=== PATIENT | male | born 1975 | race Caucasian/White ===

== ENCOUNTER → 2020-04-30 | Outpatient (CLI) | payer BC ==
[2020-04-30 13:14] LABS: Basophils # (A) 0.2 k/uL (0-0.2); Basophils % (A) 2 %; Eosinophils # (A) 1.3 k/uL (0-0.7); Eosinophils % (A) 10 %; HCT 51.5 % (39.0-53.0); HGB 17.2 gm/dL (13.0-17.5); Lymphocytes # (A) 1.6 k/uL (1.0-4.8); Lymphocytes % (A) 12 %; MCHC 33.4 g/dL (31.0-37.0); MCV 86.8 fL (80.0-100.0); Mean Platelet Volume 7.6; Monocytes # (A) 0.7 k/uL (0-1.0); Monocytes % (A) 6 %; Neutrophils # (A) 9.4 k/uL (1.3-7.7); Neutrophils % (A) 70 %; Platelet Count 202 k/uL (150-450); RBC 5.94 m/uL (4.30-5.90); RDW 13.9 % (11.5-15.5); WBC 13.4 k/uL (3.8-10.6)
== END | disposition home or self-care (01) ==
LOC: LABWHC1 11:47
PROVIDERS: ATTEND Podiatrist Primary Podiatric Medicine
DX: L03.116 Cellulitis of left lower limb (principal); M10.072 Idiopathic gout, left ankle and foot
CPT/HCPCS: 36415; 84550; 85025

== ENCOUNTER → 2021-07-02 | Outpatient (CLI) | payer BC ==
--- NOTE | 2021-07-02 15:31 | CONS ---
CONSULTATION DATE OF SERVICE: 07/02/2021 This 45-year-old gentleman has been evaluated in [facility] Center for obstructive sleep apnea-hypopnea syndrome. HISTORY OF PRESENT ILLNESS/SLEEP-WAKE EVALUATION: This patient was diagnosed with obstructive sleep apnea 3 years ago in [place], according to him. Since that time he has been on on treatment with CPAP, and he is using the equipment every night for the whole night. With CPAP he does not snore and he sleeps well. His sleep schedule is from 11 p.m. until 7 a.m. No problems with falling asleep. No TV in bedroom. He usually sleeps on the back and side positions. He may wake up from sleep once to use the bathroom. No history of hypnagogic hallucinations, sleep paralysis or cataplexy. Sometimes he may feel that there is not enough pressure in his machine. I checked his CPAP unit. It is in automatic regimen. Range of the pressure is 11 to 14, average pressure 12.5, usage 30/30 nights for more than 4 hours, average 7.8 hours per night. Leak is 23 L/minute, which is within normal range. Apnea-hypopnea index is only 0.4, which is absolutely perfect. The patient is using AirFit P10 large nasal pillow masks. [place] Sleepiness Scale is 5. The patient may take one nap around 1 p.m. PAST MEDICAL HISTORY: Positive for gout. PAST SURGICAL HISTORY: Positive for hiatal hernia. MEDICATIONS: Allopurinol 100 mg once a day. SOCIAL HISTORY: Negative for smoking. Alcohol consumption occasional. FAMILY HISTORY: Asthma, snoring, restless legs. REVIEW OF SYSTEMS: Occasionally not sufficient air in the CPAP unit. Otherwise negative. No fevers. No double vision. No recent chest pain. No shortness of breath. No abdominal pain. No bleeding episodes. No blood in the urine. No seizure episodes. PHYSICAL EXAMINATION: GENERAL: Pleasant gentleman without distress. VITAL SIGNS: BP 151/81, HR 81, RR 18, height 6 feet 1 inch, weight 290.8 pounds, body mass index 38.2, temperature 97.5, oxygen saturation at room air 96%. HEENT: PERRLA, EOMI, evaluation of oropharynx showed tongue protrudes midline. Low position of soft palate; Mallampati III. NECK: Supple, no JVD. Thyroid is not palpable. Wide neck; 19-1/2 inches in circumference. LUNGS: Clear to percussion and to auscultation. Good air exchange. No wheezing or rhonchi. HEART: S1, S2 regular. No murmurs, gallops, or rubs. ABDOMEN: Soft and nontender. Bowel sounds are present. No organomegaly appreciated. EXTREMITIES: No clubbing or cyanosis. INTERMEDIATE CARD TENDER: Awake, alert, and oriented X3. Cranial nerves 2 to 7 intact. There is no fasciculation or atrophy. noted. No focal deficits observed. IMPRESSION: 1. History of obstructive sleep apnea-hypopnea syndrome documented in another institution in [place], low position of soft palate; Mallampati III, wide neck, 9-1/2 inches in circumference; obstructive sleep apnea syndrome. The patient sleeps well with his CPAP unit and has continued to use CPAP equipment for the last 3 years. I checked his CPAP unit. It demonstrated 100% compliance with treatment. Normal respiration on CPAP. Apnea-hypopnea index 0.4. Sometimes he feels that there is not enough pressure in the machine. 2. Obesity; body mass index 38.2. 3. History of gout. 4. Status post surgical treatment of hiatal hernia in January 2019. PLAN: 1. Obtain results of previous sleep studies. 2. If previous sleep studies are not available, we will proceed with home sleep apnea test. 3. The patient should continue to use CPAP equipment every night for the whole night. 4. I adjusted range of the pressure in the machine to automatic range 11 to 16 cm of water. 5. No driving if feeling any sleepiness. 6. Sleep hygiene with regular time in bed for at least 7-1/2 to 8 hours. 7. Follow-up visit in 6 months, or earlier if patient has any problems. 8. Prescriptions for all necessary CPAP supplies, including nasal pillow, mask, tube, filters have been written. Sincerely, Wilton Magaña MD, PhD, FAASM Diplomat of [employer] Sleep Medicine Board of [employer] Quality Assurance Monitor Body of [facility] [place] MMPATRICK / NITA: [id number] /
== END ==
LOC: SLEEP 13:36
PROVIDERS: ATTEND Internal Medicine
DX: G47.33 Obstructive sleep apnea (adult) (pediatric) (principal); Z99.89 Dependence on other enabling machines and devices; E66.9 Obesity, unspecified; Z68.38 Body mass index [BMI] 38.0-38.9, adult; Z87.39 Personal history of other diseases of the musculoskeletal system and connective tissue; Z98.890 Other specified postprocedural states
CPT/HCPCS: 99211

== ENCOUNTER → 2022-01-14 | Outpatient (CLI) | payer BC ==
--- NOTE | 2022-01-14 12:10 | P.PN ---
Subjective DATE: 01/14/2022 FOLLOW UP VISIT. Patient with obstructive sleep apnea hypopnea syndrome return to sleep center for follow-up visit. Information from previous visit have been reviewed. Patient is using PAP equipment every night for the whole night, getting PAP supplies in time. The patient does not have significant problems with the mask, PAP unit and humidification. [place] sleepiness scale is 3. I checked PAP unit. Air filter is in good shape PAP unit pressure 12-16, average 12.6 cm H2O. Usage is 100 % for more then 4 hours, average 8.7 hours per night. Leak is 38 l/m, which is in acceptable range. Apnea Hypopnea Index is 0.3, which is normal. MEDICATIONS: None During physical exam: GENERAL: A pleasant patient without any distress. VITAL SIGNS: BP 131/83, HR 68, RR 16 , weight 289.6, temperature 97.0, oxygen saturation at room air 97 % . HEENT: PERRLA, EOMI.low position of soft palate, Mallapati 3 . NECK: Supple. No JVD. LUNGS: Clear to percussion and to auscultation. Good air exchange. No wheezing or rhonchi. HEART: S1, S2 regular. ABDOMEN: Soft and nontender. Obese EXTREMITIES: No clubbing or cyanosis. STARCH AND PROSIZE MIXER: Awake, alert, and oriented x3. No focal deficit. Impressions: 1. Obstructive sleep apnea-hypopnea syndrome in severe range. Sleep study which was done in [place] in 2018 showed apnea-hypopnea index 49.1. Patient demonstrated great compliance with treatment, benefiting from treatment. Normal respiration on CPAP. 2. Obesity. 3. History of gout. 4. Status post surgical treatment for high at the hernia in January 2019. Plan: 1. Continue using PAP equipment every night for the whole night. I changed pressure in CPAP unit to the range from 10-16 cm of water. 2. To change air filter at least 1-2 times per month. 3. PAP unit should stay lower then position of the head. 4. Advised patient to remove all remaining water from humidifier canister daily and make it dry after each usage. Refill canister with fresh distilled water before each usage. 5. Sleep hygiene with regular time in bed for at least 8 hours. 6. Precautions related to driving. No driving if feel any sleepiness. 7. I will maintain prescription for PAP supplies including mask, tube, filters. 8. Follow up visit in 6 months or earlier if patient has any problems. 9. Watching and losing weight. Thank you very much for allowing me to participate in the management of your patient. Wilton Magaña MD, PhD, FAASM. Diplomat of [employer], Sleep Medicine Board by [employer] Credit Adjuster of [facility] [place]
== END ==
LOC: SLEEP 11:41
PROVIDERS: ATTEND Internal Medicine
DX: G47.33 Obstructive sleep apnea (adult) (pediatric) (principal); E66.9 Obesity, unspecified; Z99.89 Dependence on other enabling machines and devices; M10.9 Gout, unspecified; Z98.890 Other specified postprocedural states

== ENCOUNTER → 2022-07-28 | Outpatient (CLI) | payer BC ==
--- NOTE | 2022-07-28 11:29 | P.PN ---
Subjective DATE: 07/28/2022 FOLLOW UP VISIT. Patient with obstructive sleep apnea hypopnea syndrome return to sleep center for follow-up visit. Information from previous visit have been reviewed. Patient is using PAP equipment every night for the whole night, getting PAP supplies in time. The patient does not have significant problems with the mask, PAP unit and humidification. [place] sleepiness scale is 3, which is totally normal. I checked information from PAP unit. PAP unit pressure 13-16, average 14.2 cm H2O. Usage is 100 % for more then 4 hours, average 7.8 hours per night. Leak is 40 l/m, which is in acceptable range. Apnea Hypopnea Index is 0.7, which is normal. Patient had several episodes for the last 6 months when he wakes up from sleep and feel that is not enough pressure and his CPAP unit. MEDICATIONS:1. Allopurinol 150 mg once a day During physical exam: GENERAL: A pleasant patient without any distress. VITAL SIGNS: BP 156/94, HR 70, RR 16 , weight 282.4, temperature 98.2, oxygen saturation at room air 96 % . HEENT: PERRLA, EOMI.low position of soft palate, Mallapati 3 . NECK: Supple. No JVD. LUNGS: Clear to percussion and to auscultation. Good air exchange. No wheezing or rhonchi. HEART: S1, S2 regular. ABDOMEN: Soft and nontender. Obese EXTREMITIES: No clubbing or cyanosis. LINOLEUM TILE LAYER: Awake, alert, and oriented x3. No focal deficit. Impressions: 1. Obstructive sleep apnea-hypopnea syndrome. Patient demonstrated great compliance with treatment, benefiting from treatment. 2. Obesity, BMI 37.2, patient lost 7 pounds since previous visit. 3. Gout. 4. Status post surgical treatment for hiatal hernia in 2019. Plan: 1. Continue using PAP equipment every night for the whole night. I adjusted range of the pressure in CPAP unit to 1417 centimeters of water. 2. To change air filter at least 1-2 times per month. 3. PAP unit should stay lower then position of the head. 4. Advised patient to remove all remaining water from humidifier canister daily and make it dry after each usage. Refill canister with fresh distilled water before each usage. 5. Sleep hygiene with regular time in bed for at least 8 hours. 6. Precautions related to driving. No driving if feel any sleepiness. 7. I will maintain prescription for PAP supplies including mask, tube, filters. 8. Watching and continue losing weight. 9. Follow up visit in 6 months or earlier if patient has any problems. Thank you very much for allowing me to participate in the management of your patient. Wilton Magaña MD, PhD, FAASM. Diplomat of [employer], Sleep Medicine Board by [employer] Inside Barrel Lathe Operator of [facility] [place]
== END ==
LOC: SLEEP 11:04
PROVIDERS: ATTEND Internal Medicine
DX: G47.33 Obstructive sleep apnea (adult) (pediatric) (principal); E66.9 Obesity, unspecified; Z68.37 Body mass index [BMI] 37.0-37.9, adult; M10.9 Gout, unspecified; Z98.890 Other specified postprocedural states; Z99.89 Dependence on other enabling machines and devices
CPT/HCPCS: 99212

== ENCOUNTER → 2022-12-30 | Outpatient (CLI) | payer BC ==
--- NOTE | 2022-12-30 13:41 | US ---
EXAMINATION TYPE: US extremity nonvasc complete LT DATE OF EXAM: 12/30/2022 COMPARISON: NONE CLINICAL INDICATION: Male, 47 years old with history of M76.62 achilles tendonitis; TECHNIQUE: Multiple sonographic images posterior left ankle for assessment of the Achilles tendon. FINDINGS: Achilles tendon shows normal, smooth delineation with preserved fibrillar architecture. No abnormal t hickening or tear is identified. There is a small effusion within the retrocalcaneal bursa at the Ach illes insertion. No other specific abnormality seen here. IMPRESSION: Normal sonographic appearance to the Achilles tendon. There may be a small retrocalcaneal bursitis ju st adjacent. If symptoms persist, consider MRI.
== END | disposition home or self-care (01) ==
LOC: RADUSWWP 12:50
PROVIDERS: ATTEND Family Medicine
DX: M76.62 Achilles tendinitis, left leg (principal)

== ENCOUNTER → 2023-04-07 | Outpatient (CLI) | payer BC ==
--- NOTE | 2023-04-07 11:07 | P.PN ---
Subjective DATE: 04/07/2023 FOLLOW UP VISIT. Patient with obstructive sleep apnea hypopnea syndrome return to sleep center for follow-up visit. Information from previous visit have been reviewed. Patient is using PAP equipment every night for the whole night, getting PAP supplies in time. The patient does not have significant problems with the mask, PAP unit and humidification. [place] sleepiness scale is 3, which is perfect. I checked information from PAP unit. PAP unit pressure 14-17, average 15.3 cm H2O. Usage is 100 % for more then 4 hours, average 7.6 hours per night. Leak is 31 l/m, which is in acceptable range. Apnea Hypopnea Index is 0.3, which is normal. CPAP unit is more than 5-year-old, sometimes noisy. MEDICATIONS:1. Allopurinol 150 mg once a day During physical exam: GENERAL: A pleasant patient without any distress. VITAL SIGNS: BP 157/99, HR 60, RR 16 , weight 301.0, temperature 98.3, oxygen saturation at room air 95 % . HEENT: PERRLA, EOMI.low position of soft palate, Mallapati 3 . NECK: Supple. No JVD. LUNGS: Clear to percussion and to auscultation. Good air exchange. No wheezing or rhonchi. HEART: S1, S2 regular. ABDOMEN: Soft and nontender. Obese EXTREMITIES: No clubbing or cyanosis. CORROSION CONTROL FITTER: Awake, alert, and oriented x3. No focal deficit. Impressions: 1. Obstructive sleep apnea-hypopnea syndrome. Patient demonstrated great compliance with treatment, benefiting from treatment. 2. Obesity, BMI 39.7, patient increased his weight on 19 pounds comparing with previous visit. 3. Gout. 4. Status post surgical treatment for hiatal hernia in 2019. Plan: 1. Continue using PAP equipment every night for the whole night. 2. Prescription to replace CPAP unit. 3. PAP unit should stay lower then position of the head. 4. Advised patient to remove all remaining water from humidifier canister daily and make it dry after each usage. Refill canister with fresh distilled water before each usage. 5. Sleep hygiene with regular time in bed for at least 8 hours. 6. Precautions related to driving. No driving if feel any sleepiness. 7. I will maintain prescription for PAP supplies including mask, tube, filters. 8. Follow up visit in 30-90 days after getting new CPAP unit . 9. Watching and losing weight. Thank you very much for allowing me to participate in the management of your patient. Wilton Magaña MD, PhD, FAASM. Diplomat of [employer], Sleep Medicine Board by [employer] Sub Master of [facility] [place]
== END ==
LOC: 3 N SLEEP 10:23
PROVIDERS: ATTEND Internal Medicine
DX: G47.33 Obstructive sleep apnea (adult) (pediatric) (principal); E66.9 Obesity, unspecified; M10.9 Gout, unspecified; Z68.39 Body mass index [BMI] 39.0-39.9, adult; Z87.19 Personal history of other diseases of the digestive system; Z99.89 Dependence on other enabling machines and devices
CPT/HCPCS: 99212

== ENCOUNTER → 2023-11-01 | Outpatient (CLI) | payer BC ==
[2023-11-01 15:57] LABS: Basophils # (A) 0.09 X 10*3/uL (0.00-0.10); Basophils % (A) 1.4 %; Eosinophils # (A) 0.19 X 10*3/uL (0.04-0.35); HCT 51.5 % (39.6-50.0); HGB 16.5 g/dL (13.0-17.0); Lymphocytes # (A) 1.77 X 10*3/uL (0.90-5.00); Lymphocytes % (A) 28.3 %; MCH 27.7 pg (27.0-32.0); MCV 86.6 FL (80.0-97.0); Mean Platelet Volume 10.4 FL (9.5-12.2); Monocytes # (A) 0.47 X 10*3/uL (0.20-1.00); Monocytes % (A) 7.5 %; NRBC Per 100 WBC 0 X 10*3/uL (0.00-0.01); Neutrophils # (A) 3.72 X 10*3/uL (1.80-7.70); Neutrophils % (A) 59.5 %; Platelet Count 230 X 10*3/uL (140-440); RBC 5.95 X 10*6/uL (4.40-5.60); RDW 15.8 % (11.5-14.5); WBC 6.26 X 10*3/uL (4.50-10.00)
[2023-11-01 16:13] LABS: ALT 32 U/L (10-49); AST 32 U/L (14-35); Albumin 4.2 g/dL (3.8-4.9); Albumin/Globulin Ratio 1.68 Ratio (1.60-3.17); Alkaline Phosphatase 91 U/L (41-126); BUN/Creat Ratio 12.25 Ratio (12.00-20.00); Blood Urea Nitrogen 14.7 mg/dL (9.0-27.0); Calcium 9.3 mg/dL (8.7-10.3); Carbon Dioxide 21.5 mmol/L (21.6-31.8); Chloride 104 mmol/L (96-109); Chol/HDL Ratio 4.47 Ratio; Globulin 2.5 g/dL (1.6-3.3); Glucose 105 mg/dL (70-110); LDL Cholesterol,Calculated 125.5 mg/dL (0.0-131.0); Potassium 4.7 mmol/L (3.5-5.5); Sodium 139 mmol/L (135-145); Total Bilirubin 0.5 mg/dL (0.3-1.2); Total Protein 6.7 g/dL (6.2-8.2); Uric Acid 6.2 mg/dL (3.7-8.7)
[2023-11-01 16:19] LABS: Erythrocyte Sedimentation Rate 26 mm/Hr (0-15)
[2023-11-01 19:40] LABS: Clam IgE <0.10 kU/L; Codfish IgE <0.10 kU/L; Egg White IgE <0.10 kU/L; Peanut IgE <0.10 kU/L; Scallop IgE <0.10 kU/L; Shrimp IgE <0.10 kU/L; Soybean IgE <0.10 kU/L; Walnut IgE (Food) <0.10 kU/L
== END | disposition home or self-care (01) ==
LOC: LABWHC1 10:40
PROVIDERS: ATTEND Family Medicine
DX: Z71.3 Dietary counseling and surveillance (principal)
CPT/HCPCS: 36415; 80053; 80061; 82043; 82533; 82570; 82627; 82785; 83036; 84402; 84403; 84443; 84550; 85025; 85652; 86003; 86140

== ENCOUNTER → 2024-08-14 | Outpatient (CLI) | payer BC ==
[2024-08-14 15:59] VITALS: BP 157/98; PULSE 82; RESP 16; TEMP 97.6
--- NOTE | 2024-08-14 16:45 | P.SLEEP ---
History of Present Illness H&P Date: 08/14/24 This is a 49-year-old male patient who is coming in to establish care regarding his obstructive sleep apnea. The patient original diagnosis was done in [place] and the patient was diagnosed having obstructive sleep apnea and the patient was given an APAP machine. The patient is utilizing the same machine that was given back in 2019. His treatment has been successful over the years and the patient is currently on a APAP mode pressures of 14/20 cm of water and is using a AirFit P10 nasal pillow. Over the years, the patient denies gaining weight. While on treatment, the patient reports no snoring. His apneas have essentially recovered and the patient denies waking up choking or gasping for air. He works remotely for [employer]. He is going to bed at around 11 PM waking up 6 AM in the morning and he feels refreshed and alert during the day without any hypersomnia or sleepiness as long as he has the CPAP machine now. I checked the compliance data from his machine. The patient has a ResMed 10 and based on a 30-day compliance data collection, the patient has used the machine more than 4 hours 100% of the time and the patient has been averaging around 8.3 hours of CPAP use per night. His 95th percentile pressure is at 15.1 with a leak of 25 L/min and his AHI is down to 1. His only complaint is that at times, he feels that the pressure is low and he benefits from a higher pressure. His humidity control is automatic. His temperature is at 81 F. No sleep paraly sis. No hallucinations. No cataplexy. No dry mouth. No nocturnal chest pain or heartburn. No restlessness in the lower extremities. No sleepwalking or sleep talking. No hallucinations. No cataplexy. No history of any motor vehicle accident because of feeling drowsy or sleepy. No cardiovascular complications or disease. Review of Systems Constitutional: Denies chills, Denies fever Eyes: denies as per HPI, denies blurred vision, denies bulging eye, denies decreased vision, denies diplopia, denies discharge, denies dry eye, denies irritation, denies itching, denies pain, denies photophobia, denies loss of peripheral vision, denies loss of vision, denies tunnel vision/blind spots Ears: deny: decreased hearing, ear discharge, earache, tinnitus Ears, nose, mouth and throat: Reports as per HPI Breasts: absent: as per HPI, gynecomastia Respiratory: Reports sleep apnea, Reports snoring Gastrointestinal: Reports as per HPI Genitourinary: Reports as per HPI Musculoskeletal: Reports as per HPI Musculoskeletal: absent: ankle pain, ankle stiffness, ankle swelling, as per HPI, elbow pain, elbow stiffness, elbow swelling, foot pain, foot stiffness, foot swelling, hand pain, hand stiffness, hand swelling, hip pain, hip stiffness, hip swelling, knee pain, knee stiffness, knee swelling, shoulder pain, shoulder stiffness, shoulder swelling, wrist pain, wrist stiffness, wrist swelling Integumentary: Reports as per HPI Neurological: Reports as per HPI Psychiatric: Reports as per HPI Endocrine: Reports as per HPI Hematologic/Lymphatic: Reports as per HPI Allergic/Immunologic: Reports as per HPI Past Medical History Past Medical History: Sleep Apnea/CPAP/BIPAP Additional Past Medical History / Comment(s): gout History of Any Multi-Drug Resistant Organisms: None Reported Past Surgical History: Hernia Repair Past Anesthesia/Blood Transfusion Reactions: No Reported Reaction Past Psychological History: No Psychological Hx Reported Smoking Status: Never smoker Past Alcohol Use History: Occasional Past Drug Use History: None Reported - Past Family History Father Family Medical History: Hyperlipidemia, Hypertension Mother Family Medical History: Asthma Medications and Allergies Home Medications Medication Instructions Recorded Confirmed Type allopurinoL 300 mg PO DAILY 08/14/24 08/14/24 History Physical Exam Vitals: Vital Signs Temp Pulse Resp BP Pulse Ox 08/14/24 15:58 97.6 F 82 16 157/98 97 Intake and Output 08/14/24 08/14/24 08/14/24 06:59 14:59 22:59 Other: Weight 130.635 kg The patient appeared well nourished and normally developed. Vital signs as documented. Body mass index is 38.5. Patient has a Mallampati class IV. Head exam is unremarkable. No scleral icterus or corneal arcus noted. Neck is without jugular venous distension, thyromegaly, or carotid bruits. Carotid upstrokes are brisk bilaterally. Lungs are clear to auscultation and percussion. Cardiac exam reveals the PMI to be normally sized and situated. Rhythm is regular. First and second heart sounds normal. No murmurs, rubs or gallops. Abdominal exam reveals normal bowel sounds, no masses, no organomegaly and no aortic enlargement. Extremities are nonedematous and both femoral and pedal pulses are normal. Examination of the skin revealed no evidence of significant rashes, suspicious appearing nevi or other concerning lesions. Neurologically, the patient is awake and alert and the patient does not have any focal neurological deficit. Cranial nerves are essentially intact. Assessment and Plan Plan: Obstructive sleep apnea. Diagnosis was established back in 2018 through the sleep center out of [place], [place]. The patient has been successfully treated with APAP therapy pressures of 14/20 cm of water. Chronic hypersomnia, improved with CPAP therapy Snoring, recovered with CPAP therapy Obesity with a BMI of 38.5 Plan I checked the patient's CPAP unit. The patient is successful in his treatment. I suggested adjusting his APAP setting to a pressure of 10/20 cm of water. I also showed him how to switch the mode into a CPAP mode if needed and set up at a pressure of 16 cm of water with knowing that his 95th percentile pressure is at 15.1. The patient is going to try both modes and decide which 1 to use. Continue using the AirFit P10 nasal pillows, large size. He is refills will be given through [employer]. Encouraged weight loss Maintain good sleep hygiene measures The patient's machine is functional. No need to replace his machine at this point. The patient will see back in a years time in follow-up in the office. Sleep Note - Sleep Data ESS Total: 3 - Sleep Note Sleep Note: Temperature: 97.6 F Pulse Rate: 82 Respiratory Rate: 16 Blood Pressure: 157/98 SpO2: 97 Height: 6 ft 0.5 in Weight: 130.635 kg BMI: Neck Circumference: 18
== END ==
LOC: 3 N SLEEP 14:43
PROVIDERS: ATTEND Internal Medicine Critical Care Medicine
DX: G47.33 Obstructive sleep apnea (adult) (pediatric) (principal); E66.9 Obesity, unspecified; Z99.89 Dependence on other enabling machines and devices; Z68.38 Body mass index [BMI] 38.0-38.9, adult
CPT/HCPCS: 99211